=== PATIENT | female | born 1960 | race Caucasian/White ===

== ENCOUNTER 2017-04-28 18:57 | Emergency (ER) | payer BC, OTHER ==
[~2017-04-28] VITALS: Ht 152.4 cm; Wt 40.8 kg
[2017-04-28] MEDS ORDERED: ALBUTEROL/IPRATROPIUM 3 ML NEB NEB ONE (19:15)
== END 2017-04-28 20:00 | disposition home or self-care (01) ==
LOC: FSED 18:57
DX: J20.8 Acute bronchitis due to other specified organisms (principal); Z87.01 Personal history of pneumonia (recurrent)
CPT/HCPCS: 71046; 99282; 99283

== ENCOUNTER 2020-12-10 12:52 | Emergency (ER) | payer OTHER ==
[~2020-12-10] VITALS: Ht 152.4 cm; Wt 37.6 kg
[2020-12-10] MEDS ORDERED: CASIRIVIMAB/IMDEVIMAB 10 ML in SODIUM CHLORIDE 0.9% 100 ML IV ONE (13:15)
== END 2020-12-10 15:39 | disposition home or self-care (01) ==
LOC: ER 13:26
DX: R05 Cough (principal); U07.1 COVID-19
CPT/HCPCS: 99283